=== PATIENT | female | born 1955 | race Caucasian/White ===

== ENCOUNTER → 2017-12-18 15:26 | Outpatient (CLI) | payer MEDICARE, SELFPAY ==
[2017-12-18 17:27] LABS: Absolute Lymphocyte Count 1.36 X10^3/ul (0.83-4.51); Basophil# 0.01 X10^3/uL; Basophil% 0.1 % (0-1); Eosinophil# 0.21 X10^3/uL; Hematocrit 40.6 % (37-47); Hemoglobin 13.4 g/dl (12.0-15.0); Lymphocyte # 1.36 X10^3/ul (4.0); Lymphocyte % 19.3 % (19-41); Mean Corpuscular Hgb 28.3 pg (27.0-32.0); Mean Corpuscular Volume 85.7 fL (81-99); Mean Platelet Vol. 10.5 fl (6.2-12.0); Monocyte# 0.43 X10^3/uL; Monocyte% 6.1 % (0-10); Neutrophil # 5.03 X10^3/uL (2.7-7.7); Neutrophil % 71.4 % (47-70); Platelet Count 231 K/mm3 (150-450); RBC Distribution Width CV 13.7 % (11.6-14.6); RBC Distribution Width SD 42.3 fl (35.1-43.9); Red Blood Count 4.74 M/mm3 (4.2-5.4); White Blood Count 7.1 K/mm3 (4.4-11.0)
[2017-12-18 17:33] LABS: POSITIVE COUNT NO; POSITIVE DIFFERENTIAL NO; POSITIVE MORPHOLOGY NO
[2017-12-18 17:51] LABS: Albumin, Serum 4.1 g/dL (3.2-5.0); BUN 25 mg/dL (7-18); BUN/Creat Ratio 14.7 RATIO (10-20); Calcium,Total 9.5 mg/dL (8.5-10.1); Chloride 103 mmol/L (98-107); EST Glomerular Filtration Rate 32 mL/min (>60); Est Glom Filt Rate - Afr Amer 39 mL/min (>60); Glucose 81 mg/dL (74-106); Phosphorus 3.7 mg/dL (2.5-4.9); Potassium 4.8 mmol/L (3.5-5.1); Sodium Level 137 mmol/L (136-145)
[2017-12-19 09:51] LABS: PTHIN 166.4 pg/mL (18.4-80.1)
[2017-12-19 10:07] LABS: Vitamin D,25 Hydroxy 20.5 ng/mL (29.95-100.01)
== END ==
PROVIDERS: Family Provider Family Medicine; PCP Family Medicine
DX: N18.3 Chronic kidney disease, stage 3 (moderate) (principal); E55.9 Vitamin D deficiency, unspecified; E21.3 Hyperparathyroidism, unspecified
CPT/HCPCS: 36415; 80069; 82306; 83970; 85025

== ENCOUNTER 2024-03-26 13:26 | Emergency (ER) | payer MEDICARE, SELFPAY ==
[2024-03-26 13:27] VITALS: BP 146/116; PULSE 116; RESP 18; TEMP 36.1; O2SAT 100
--- NOTE | 2024-03-26 13:30 | RAD_ITS ---
STUDY: X-RAY - RIGHT WRIST REASON FOR EXAM: Female, 69 years old. Pain following a fall. TECHNIQUE: 3 view(s) of the wrist were obtained. COMPARISON: None. FINDINGS: Comminuted nondisplaced transverse fracture of the distal radial metaphysis with extension to the articular surface. Normal radiocarpal articulation. Normal distal radioulnar articulation. Normal carpal bones. Normal carpal articulations. Normal carpometacarpal articulation of the thumb. Normal second through fifth carpometacarpal articulations. Normal visualized metacarpal bones. Soft tissue swelling. RAD/Wrist min 3 Views IMPRESSION: Comminuted nondisplaced fracture of the distal radial metaphysis with extension to the articular surface. Soft tissue swelling. Electronically Signed: Jason Granados MD at 14:13 EDT ,
[2024-03-26] MEDS: oxyCODONE 5 MG Tablet PO (15:07)
--- NOTE | 2024-03-26 15:13 | EX.ED.UPPERE ---
HPI <KAMRAN Lutz - Last Filed: 03/26/24 15:20> History of Present Illness Chief Complaint: Upper Extremity Injury Narrative Narrative: Patient is a 69-year-old female with history of kidney disease, who presents to the emergency department after mechanical fall that occurred yesterday around 2 PM. Patient states she is tripped over a step landing on her right wrist. Patient states that the swelling was worse, she was having more pain and is here for evaluation. PFSH <KAMRAN Lutz - Last Filed: 03/26/24 15:20> [facility] Medical History (Updated 03/26/24 @ 16:[address] Berhane Horne MD) Back pain Home Medications ?Medication ?Instructions ?Recorded ?Last Taken ?Type oxycodone-acetaminophen 5 mg-325 1 tab PO Q8H PRN pain 3 days #10 03/26/24 Unknown Rx mg tablet (Percocet) tabs Allergy/AdvReac Type Severity Reaction Status Date / Time tetracycline Allergy Severe Angioedema Verified 03/26/24 13:27 Social History Smoking Status: Never smoker ROS <KAMRAN Lutz - Last Filed: 03/26/24 15:20> ROS ED ROS Narrative Constitutional: Negative for fever, chills, weight loss, weakness Eyes: Negative for vision loss, vision change, double vision ENT: Negative for any sore throat, ear pain, congestion Cardiovascular: Negative for any chest pain, tightness, palpitations Respiratory: Negative for any cough, sputum production, hemoptysis, dyspnea, dyspnea on exertion, orthopnea Gastrointestinal: Negative for any abdominal pain, nausea, vomiting, diarrhea, constipation, blood in stool, blood in vomit : Negative for any urinary frequency, dysuria, retention, blood in urine Muscle skeletal: Negative for any neck pain, back pain. Positive right wrist pain Neurological: Negative for any headache, syncope, dizziness Skin: Negative for any rashes, itching, abrasions, lacerations Psychiatric: Negative for any depression, anxiety, stress, suicidal ideation, homicidal ideation Hematologic: Negative for any excessive bruising, easy bleeding EXAM <KAMRAN Lutz - Last Filed: 03/26/24 15:20> Physical Exam Narrative Exam Narrative: Vital signs reviewed. Extremities: Patient has obvious signs of trauma to the right wrist, there is some edema, ecchymosis, patient does have significant pain to both the distal radius and distal ulna. Patient has +2 pedal pulses. Patient is able to fan her fingers, do an okay sign, cross her fingers. No numbness or tingling. Neuro: Cranial nerves II through XII intact, no focal neurological deficits. Skin: Clean dry and intact with no rash, purpura, petechiae, vesicles or pustules. Backs/flank: No CVA tenderness, no midline spinal tenderness, no deformity. Psych: Normal mood and affect. No SI, HI or acute psychosis. Const Vital Signs: 03/26/24 13:27 Temperature 97 F L Temperature Source Temporal Pulse Rate 116 H Respiratory Rate 18 Blood Pressure 146/116 H Blood Pressure Mean 126 Pulse Ox 100 Oxygen Delivery Method Room Air [facility] <KAMRAN Lutz - Last Filed: 03/26/24 15:20> [facility] Radiography Diagnostic Testing: Clinical Impression(s) from Imaging Studies Wrist X-Ray 03/26/24 13:30 IMPRESSION: Comminuted nondisplaced fracture of the distal radial metaphysis with extension to the articular surface. Soft tissue swelling. Electronically Signed: Jason Granados MD at 14:13 EDT , Treatment and Re-Evaluation Narrative: Differential diagnosis includes however is not limited to: Wrist fracture, wrist contusion, wrist sprain Patient appears generally well, vital signs are stable, patient is nontoxic-appearing. Presenting to the emergency department with right wrist pain after mechanical fall that occurred yesterday around 2 PM. Patient's x-rays show a comminuted nondisplaced fracture distal radial metaphysis with extension into the articular surface. Secondary to this finding, patient was given a oxycodone. Patient will be placed in a AP splint. She will follow-up closely with orthopedics. She will be given Percocet for home. She instructed ice and elevate. She was made aware this was a temporary cast that cannot get wet. She is happy the plan of care, all questions answered, stable for discharge <Dr. Berhane Horne MD - Last Filed: 03/26/24 16:32> [facility] MDM Narrative Medical decision making narrative: I have personally performed a face to face assessment of the patient and have reviewed the MARCOS Note. I performed a substantive portion of the visit including all aspects of the following. My wolf findings include: History is patient fell outstretched arm. She denies paresthesia, anesthesia or motor weakness. Exam is remarkable for swelling of the right wrist with pain to palpation. Median, radial and ulnar function intact. There is no subungual hematoma of the thumb or digits. Medical Decision Making x-ray was obtained to evaluate for contusion versus fracture. Other additions or changes: Three-view x-ray reveals a comminuted extra-articular transverse fracture of the distal radius. there is no displacement of the intra-articular fracture. Patient lost her volar tilt. Patient was placed in a AP short arm splint. This was performed by the nurse practitioner. I did review the splint afterwards. This is her nondominant hand. Discharge Plan Triage Chief Complaint: Upper Extremity Injury ED Midlevel Provider: Oliverio Puga ED Provider: Berhane Horne Dx/Rx/DC Orders Clinical Impression: Intra-articular fracture of distal end of radius with volar angulation, Injury due to fall Instructions: ED Fracture, Upper Extremity, ED Fracture, Wrist, General Prescriptions: New oxycodone-acetaminophen [Percocet] 5-325 mg tablet 1 tab PO Q8H PRN (Reason: pain) 3 Days Qty: 10 0RF Primary Care Provider: Care Physician,No Primary Referrals: Muriel Mc MD [Med Staff - Final Canoe Inspector] - Anthony Lemus MD [Med Staff - Active Staff] - Care Physician,No Primary [Primary Care Provider] - Activity Restrictions/Additional Instructions: You have a fractured wrist. You need to follow-up with orthopedics. Also give you PCP. Take the pain medicine as needed. Continue to ice and elevate. This is a temporary cast, cannot get wet. You need to follow-up with in the next week. Print Language: Malaysian Disposition Disposition: Home, Self Care Discharge Date/Time: 03/26/24 15:40
[2024-03-26 15:21] VITALS: BP 136/78; PULSE 98; RESP 18; TEMP 36.1; O2SAT 100
== END 2024-03-26 15:40 | disposition home or self-care (01) ==
PROVIDERS: Emergency Provider Emergency Medicine; Referring Provider Emergency Medicine; Visit Provider Emergency Medicine
DX: S52.571A Other intraarticular fracture of lower end of right radius, initial encounter for closed fracture (principal); W19.XXXA Unspecified fall, initial encounter
CPT/HCPCS: 73110; 99282